=== PATIENT | male | born 1960 | race African-American/Black ===

== ENCOUNTER → 2017-09-14 | Outpatient (CLI) | payer OTHER ==
[~2017-09-14] MED LIST: LEVSIN/SL0.125 MG SL; PROTONIX40 MG PO
== END | disposition home or self-care (01) ==
LOC: PPHC LAB 16:24
DX: Z02.0 Encounter for examination for admission to educational institution (principal)

== ENCOUNTER 2020-07-10 13:41 | Outpatient (CLI) | payer OTHER | END 2020-07-10 18:00 | disposition home or self-care (01) | LOC: PPH VACUNA 13:41 | DX: Z23 Encounter for immunization (principal) ==

== ENCOUNTER 2020-11-06 13:12 | Outpatient (CLI) | payer OTHER | END 2020-11-06 13:22 | disposition home or self-care (01) | LOC: RAD 13:12 | DX: I10 Essential (primary) hypertension (principal); R07.89 Other chest pain ==

== ENCOUNTER → 2021-02-21 | Outpatient (CLI) | payer OTHER | END | disposition home or self-care (01) | LOC: LAB 11:03 | PROVIDERS: ATTEND Emergency Medicine Pediatric Emergency Medicine | DX: Z20.818 Contact with and (suspected) exposure to other bacterial communicable diseases (principal) ==

== ENCOUNTER 2021-04-25 08:00 | Outpatient (CLI) | payer OTHER | END 2021-04-25 08:30 | disposition home or self-care (01) | LOC: PPH VACUNA 08:00 | PROVIDERS: ATTEND Emergency Medicine Pediatric Emergency Medicine | DX: Z23 Encounter for immunization (principal) ==

== ENCOUNTER → 2021-07-24 | Outpatient (CLI) | payer OTHER | END | disposition home or self-care (01) | LOC: PPH VACUNA 08:00 | PROVIDERS: ATTEND Emergency Medicine Pediatric Emergency Medicine | DX: Z23 Encounter for immunization (principal) | CPT/HCPCS: 90686; G0008 ==

== ENCOUNTER 2022-04-03 08:00 | Outpatient (CLI) | payer OTHER | END 2022-04-03 08:05 | disposition home or self-care (01) | LOC: PPH VACUNA 08:00 | PROVIDERS: ATTEND Emergency Medicine Pediatric Emergency Medicine | DX: Z23 Encounter for immunization (principal) ==

== ENCOUNTER 2022-08-26 15:59 | Outpatient (CLI) | payer OTHER | END 2022-08-26 16:06 | disposition home or self-care (01) | LOC: RAD 15:59 | PROVIDERS: ATTEND General Practice | DX: J10.00 Influenza due to other identified influenza virus with unspecified type of pneumonia (principal) ==

== ENCOUNTER 2023-04-13 09:30 | Outpatient (CLI) | payer OTHER | END 2023-04-13 09:40 | disposition home or self-care (01) | LOC: PPH VACUNA 09:30 | PROVIDERS: ATTEND Emergency Medicine Pediatric Emergency Medicine | DX: Z23 Encounter for immunization (principal) ==

== ENCOUNTER 2023-10-05 13:15 | Outpatient (CLI) | payer OTHER | END 2023-10-05 13:22 | disposition home or self-care (01) | LOC: RAD 13:15 | PROVIDERS: ATTEND Specialist | DX: R76.11 Nonspecific reaction to tuberculin skin test without active tuberculosis (principal) ==

== ENCOUNTER 2025-01-10 12:19 | Outpatient (CLI) | payer OTHER ==
[2025-01-12 09:08] LABS: HEPATITIS A ANTIBODY IGG Positive (Negative); HEPATITIS B SURFACE ANTIBODY Reactive (.); HEPATITIS C VIRUS ANTIBODY Non Reactive (Non Reactive)
== END 2025-01-10 12:23 | disposition home or self-care (01) ==
LOC: LAB 12:19
PROVIDERS: ATTEND Anesthesiology
DX: A53.9 Syphilis, unspecified (principal); B19.9 Unspecified viral hepatitis without hepatic coma; B17.9 Acute viral hepatitis, unspecified

== ENCOUNTER 2025-01-10 13:01 | Outpatient (CLI) | payer OTHER | END 2025-01-10 13:47 | disposition home or self-care (01) | LOC: RAD 13:01 | PROVIDERS: ATTEND Anesthesiology | DX: R91.8 Other nonspecific abnormal finding of lung field (principal); I10 Essential (primary) hypertension; Z01.818 Encounter for other preprocedural examination ==

== ENCOUNTER 2025-01-20 11:00 | Outpatient (CLI) | payer OTHER | END 2025-01-20 11:10 | disposition home or self-care (01) | LOC: RAD → PPH VACUNA 11:00 | PROVIDERS: ATTEND Emergency Medicine Pediatric Emergency Medicine | DX: Z23 Encounter for immunization (principal) ==